=== PATIENT | male | born 2000 | race Caucasian/White ===

== ENCOUNTER 2020-09-14 15:33 | Emergency (ER) | payer BC, SELFPAY ==
--- NOTE | 2020-09-14 15:43 | ED.URI ---
HPI - URI/Sore Throat General Chief Complaint: Upper Respiratory Infection Stated Complaint: uvula pain Source: patient and RN notes reviewed Limitations: no limitations History of Present Illness HPI Narrative: The patient, non-smoker/nondrinker, presents with uvular pain. He states he has a remote childhood history of painful uvula. He now has a shorter, 1 day history of mild painful enlargement that causes him some nausea and occasional retching. No fever, sore throat, hoarseness, trismus, cough, wheeze, rash, shortness of breath. Symptoms are mild and temporary improved with [id number] antihistamines Related Data Allergies Allergy/AdvReac Type Severity Reaction Status Date / Time Penicillins Allergy Intermediate Unknown Verified 09/14/20 15:59 Review of Systems Review of Systems: Narrative: General/Constitutional: No weight loss,fever Eyes: N0: Redness,discharge Ears/Nose/Throat: No: Epistaxis,ear discharge Respiratory: Denies: Hemoptysis Gastrointestinal: No Vomiting, Bleeding-rectal Skin: No Lumps, eruption Neurologic: No Focal Weakness,Sz Hematologic: Denies: Petechiae/Purpura Psychiatric: No: Suicida ideationl All Other Systems: Reviewed and Negative PMFSH Comments At time of signature, agree with nursing past medical, surgical, social and family history. There is no relevant family history pertinent to the presenting complaint Exam Narrative: Exam Narrative: General Appearance: Well appearing, Conjunctiva clear Ears: Auditory canal normal, Nose: Rhinorrhea, Mucousal erythema Mouth/Throat: MM moist, Uvula midline 1+ enlarged[ but not touching tongue], Pharyngeal erythema w/o exudate Neck: Supple, No adenopathy Respiratory: No respiratory distress, Breath sounds equal, Clear to auscultation Cardiovascular: RRR, No JVD Musculoskeletal: Non tender, Normal strength Skin: Warm, Dry Neurological: A&O x3, Normal affect Course Vital Signs Vital signs: Vital Signs Temperature 98.5 F 09/14/20 15:46 Pulse Rate 57 L 09/14/20 15:46 Respiratory Rate 16 09/14/20 15:46 Blood Pressure 121/70 09/14/20 15:46 Pulse Oximetry 100 09/14/20 15:46 Temperature 98.5 F 09/14/20 15:46 Pulse Rate 57 L 09/14/20 15:46 Respiratory Rate 16 09/14/20 15:46 Blood Pressure 121/70 09/14/20 15:46 Pulse Oximetry 100 09/14/20 15:46 Discharge Plan Discharge Clinical Impression: Uvular edema Patient Disposition: Home, Self-Care Condition: Stable Instructions: Antibiotic Form, Uvulitis (ED) Prescriptions: New azithromycin 250 mg tablet See Rx Instructions .ROUTE .COMPLEX Qty: 6 RF: 0 prednisone 20 mg tablet 60 mg PO DAILY Qty: 9 RF: 0 Lidocaine Viscous 2 % solution 5 ml MUCOUS MEM QID PRN (Reason: pain) Qty: 100 RF: 0 loratadine [Claritin] 10 mg tablet 10 mg PO DAILY Qty: 20 RF: 1 Follow-up/Referrals: UNKNOWN,DOCTOR [Primary Care Provider] -
[2020-09-14 15:46] VITALS: BP 121/70; PULSE 57; RESP 16; TEMP 36.9; O2SAT 100
== END 2020-09-14 16:17 | disposition home or self-care (01) ==
PROVIDERS: Emergency Provider Emergency Medicine
DX: K13.79 Other lesions of oral mucosa (principal)
CPT/HCPCS: 99213; G0463

== ENCOUNTER → 2021-09-03 04:17 | Outpatient (CLI) | payer BC, SELFPAY ==
[2021-09-03 19:26] LABS: SARS-CoV-2 RNA PCR Negative
== END ==
PROVIDERS: PCP Physician Assistant; Visit Provider Physician Assistant
DX: R05.9 Cough, unspecified (principal); Z20.822 Contact with and (suspected) exposure to COVID-19
CPT/HCPCS: C9803; U0003; U0005

== ENCOUNTER 2023-08-10 18:13 | Emergency (ER) | payer OTHER, BC, SELFPAY ==
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
[2023-08-10 18:53] VITALS: BP 120/78; PULSE 73; RESP 18; TEMP 36.4; O2SAT 98
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
== END 2023-08-10 21:44 | disposition home or self-care (01) ==
LOC: ANHED 21:39
PROVIDERS: Emergency Provider Physician Assistant; PCP Physician Assistant
DX: S16.1XXA Strain of muscle, fascia and tendon at neck level, initial encounter (principal); S60.221A Contusion of right hand, initial encounter; G44.221 Chronic tension-type headache, intractable; V43.53XA Car driver injured in collision with pick-up truck in traffic accident, initial encounter
CPT/HCPCS: 70450; 72125; 73130; 99284